=== PATIENT | male | born 1990 | race Caucasian/White ===

== ENCOUNTER 2023-12-23 10:52 | Emergency (ER) | payer SELFPAY ==
[2023-12-23 11:02] VITALS: BP 140/78
[2023-12-23 11:30] VITALS: BMI 22.7
--- NOTE | 2023-12-23 11:49 | ED.GENMED ---
History of Present Illness
General
Chief Complaint: Abdominal Pain
Source: patient
Exam Limitations: none
Time Seen by Provider: 12/23/23 11:27
Nursing documentation reviewed up to this point in time: agreed with
Travel History
Have you had any contact with someone who has COVID-19?: No
Do you have any symptoms of coronavirus? Fever > 100 degrees, chills, cough, shortness of breath, sore throat, loss of taste or smell, muscle aches, or headache?: No
History of Present Illness
History of Present Illness:
Patient is a 33-year-old male presenting to the emergency department for evaluation of severe upper abdominal pain with associated nausea and vomiting. Symptoms have been ongoing since Wednesday night around 9 PM. Patient reports initial symptom
onset after spending the day celebrating [place] [employer], eating tacos and pizza, and drinking 4-5 margaritas. Patient states his ate the same food and has been feeling well. patient reports persistent nausea and vomiting for the past 4 days
with worsening upper abdominal pain. Pain is mostly located in upper abdomen and left upper abdomen. Patient reports chills and subjective fever. Patient denies any chest pain, shortness of breath, diarrhea. Patient states bowel moods been
normal without any hematochezia or melena. Patient denies any urinary symptoms. Patient denies any hemoptysis.
Patient does have a history of bacterial colitis a few years ago for which she was treated with antibiotics and states that this does feel similar.
Phy Exam
Physical Exam
Physical Exam:
Vitals: Mildly hypertensive, otherwise patient's vital signs are stable, afebrile
General: Patient is writhing in pain, clearly uncomfortable
Skin: Warm and dry, no rashes or lesions
Head: Normocephalic, atraumatic
Eyes: Sclera nonicteric. EOMs intact. No nystagmus.
Throat: Dry mucous membranes protecting airway
Neck: Normal ROM, no cervical spine tenderness, no meningismus
Cardiac: Regular rate and rhythm, no murmurs.
Pulm: Normal respiratory effort, no wheezes, rales, rhonchi heard on exam.
Abdomen: Significant epigastric abdominal tenderness, mild tenderness left upper quadrant without any rebound tenderness or guarding; negative Grewal sign
Extremities: No evidence of cyanosis or edema; DP pulses palpable and equal bilaterally
Neuro: AAOx3. CN II-XII intact. No focal neurologic deficits.
Psychiatric: Normal affect.
Course
Orders/Labs/Results
Orders:
Orders
12/23/23 11:37
Complete Blood Count/With Diff Urgent
Comprehensive Metabolic Panel Urgent
Lipase Urgent
12/23/23 11:48
0.9% Sodium Chloride 1000 ml [Nss] 1,000 ml IV BOLUS
HYDROmorphone [Dilaudid] 1 mg IV NOW STA
Ondansetron Injectable [Zofran] 4 mg IV NOW STA
12/23/23 11:52
CT Abd/Pel (IV only)-DH only Urgent
Comment: hx colitis
Reason For Exam: Epigastric/LUQ pain; N/V
12/23/23 12:00
Electrocardiogram (*1) Urgent
Reason for Study: Abdominal Pain
EKG- Treatment ONCE
12/23/23 12:05
Famotidine [Pepcid] 20 mg IV NOW STA
12/23/23 15:06
Potassium Chloride [KCl] 40 meq PO NOW STA
Abnormal Lab Results
12/23/23
11:37
WBC 14.0 H 10^3/uL
(4.8-10.8)
MCH 31.3 H pg
(27.0-31.0)
MPV 11.5 H fL
(7.4-10.4)
Absolute Neuts (auto) 11.1 H 10^3/uL
(1.4-6.5)
Absolute Monos (auto) 1.4 H 10^3/uL
(0.1-0.6)
Neutrophils % 79.5 H %
(42.2-75.2)
Lymphocytes % 9.8 L %
(20.5-51.1)
Monocytes % 10.0 H %
(1.7-9.3)
Sodium 134 L mmol/L
(135-145)
Potassium 3.1 L mmol/L
(3.5-5.1)
Chloride 94 L mmol/L
(98-107)
BUN 22 H mg/dl
(9-20)
Glucose 118 H mg/dl
(70-99)
Total Bilirubin 2.3 H mg/dl
(0.2-1.3)
Albumin 5.4 H g/dl
(3.5-5.0)
12/23/23 11:37
12/23/23 11:37
Vital Signs
Initial and Last Documented VS:
Initial Vital Signs
Temp Pulse Resp BP Pulse Ox
98.0 F 62 18 140/78 100
12/23/23 11:02 12/23/23 11:02 12/23/23 11:02 12/23/23 11:02 12/23/23 11:02
Last Documented Vital Signs
Temp Pulse Resp BP Pulse Ox
98.0 F 54 18 119/78 98
12/23/23 11:02 12/23/23 15:25 12/23/23 15:25 12/23/23 15:25 12/23/23 15:15
MDM/Problems Addressed
Differential Diagnosis Includes:
Not limited to: Gastritis, pancreatitis, cholecystitis, choledocholithiasis, colitis
MDM/Problems Addressed:
33-year-old male presenting for evaluation of severe left upper quadrant pain with associated nausea/vomiting for the past 4 days. Patient does state feels similar to episode of colitis a few years ago. No fever. Patient social alcohol drinker.
Vital signs are stable. He is afebrile. Exam as above. Patient is in significant distress due to pain, abdomen soft with significant tenderness in epigastric and left upper quadrant. Will check basic labs, lipase. Will get CT scan of abdomen
pelvis. Given epigastric discomfort�will check EKG, although seriously doubt cardiac etiology or ACS. Dilaudid, Zofran, fluids, famotidine. Will closely monitor and reassess
Labs noted. He does have leukocytosis of 14. This may be reactive due to vomiting for the past 4 days. Lipase is normal. He does appear dehydrated on lab work. Sodium 134. Potassium 3.1. Will give 40 p.o. potassium. Patient states nausea has
improved following Zofran and has had no episodes of vomiting since arrival to ED. Bilirubin is elevated 2.[address] pending.
Into reassess patient at bedside. He was seen to have a few intermittent PVCs on the surveillance monitor. He denies any chest pain, shortness of breath. I do not believe symptoms to be at all cardiac in nature. He appears much more comfortable than
earlier. Pain much improved. CT scan shows no acute abnormalities. Did speak with radiologist regarding contrast appearing substance seen in cecum�which is likely attributable to Pepto-Bismol the patient ingested earlier today.
Patient is stable. Workup here has been grossly negative. No evidence for pancreatitis, he is tolerating p.o. food/water without any repetitive episodes of vomiting. Symptoms might be related to gastritis. Given elevation white blood cell
count�will send prescription for antibiotics. Will discharge with Zofran and PPI for the next 2 weeks. He will follow-up with primary care next week. Return precautions discussed at length. Patient comfortable with this plan. All questions
answered
Chronic conditions affecting care:
N/A
Acute Exacerbation and/or Progression of Chronic Illness:
N/A
*Radiology
Radiology exam reviewed: preliminary read by ED provider and radiology read reviewed
*Pulse Oximetry
Patient hypoxic: no
*EKG
Interpreted by ED Provider?: Yes
EKG Intrepretation Date: 12/23/23
Interpretation: normal
Comparison EKG: no comparison EKG present
Heart Rate: 73
Rate: normal
Rhythm: sinus
Ischemia: no ischemia
*M[employer] Specialist Interpretation
Rate: normal
Interpretation: normal
Heart Rate: 54
Rhythm: sinus
*Critical Care Note
Total Time (30-74mins, 75-104mins- exclusive of procedures): Not Applicable
ED Attending Note
-
Portions of this chart may have been created with voice recognition software.� Occasional wrong word or��sound alike� substitutions may have occurred due to the inherent limitations of voice recognition software.
Discharge Plan
Departure
Patient Disposition: Home (Routine Discharge)
Date of Disposition: 12/23/23
Time of Disposition: 15:17
Patient with high blood pressure during this ER visit?: Yes
Condition: Good
Covid-19: Not Applicable
Discharge Problem:
Abdominal pain, Nausea and vomiting
Instructions: Nausea and Vomiting, Adult (DC), Gastritis (DC), Abdominal Pain
Prescriptions:
New
amoxicillin-pot clavulanate 500-125 mg tablet
1 tab PO BID 5 Days Qty: 10 0RF
ondansetron 4 mg tablet,disintegrating
4 mg PO Q8H PRN (Reason: nausea and vomiting) Qty: 10 0RF
omeprazole 20 mg capsule,delayed release(DR/EC)
20 mg PO DAILY 14 Days Qty: 14 0RF
Referrals:
Marbin Baxter DO [Family Provider] - Follow up in 5-7 days
Stand Alone Forms: Return to Work
Activity Restrictions/Additional Instructions:
-Return to the emergency department with any high fevers, severe abdominal pain, persistent nausea/vomiting, vomiting blood, signs of severe dehydration, worsening in current symptoms, or any other concerns
-Your prescriptions have been sent to the pharmacy
-It is important to stay well hydrated
-As discussed - you should follow-up with your primary care provider within the week to ensure that symptoms are improving.
Interventions
Interventions:
*Risk Screen - Suicide Last Done: 12/23/23 11:02
*General Assessment Last Done: 12/23/23 11:02
*Neglect/Abuse Screening Last Done: 12/23/23 11:02
*ED COVID-19 Vaccine History Last Done: 12/23/23 11:02
*Nursing Disposition Last Done: 12/23/23 15:59
[facility] Assessment Last Done: 12/23/23 11:31
Discharge Date and Time
Discharge Date/Time: 12/23/23 15:59
Print Language: [place]ET[place]ESE
[2023-12-23] MEDS: ZOFRAN 4 MG IV (11:53)
[2023-12-23] MEDS: NSS 1000 IV (11:53)
[2023-12-23] MEDS: DILAUDID 1 MG IV (11:53)
[2023-12-23 11:57] LABS: % Basophils 0.3 % (0-2); % Eosinophils 0.1 % (0-6); % Immature Granulocytes 0.3 % (0-0.5); % Lymphocytes 9.8 % (20.5-51.1); % Neutrophils 79.5 % (42.2-75.2); Absolute Lymphocytes 1.4 10^3/uL (1.2-3.4); Absolute Monocytes 1.4 10^3/uL (0.1-0.6); Absolute Neutrophils 11.1 10^3/uL (1.4-6.5); Hematocrit 44.6 % (39.0-52.0); Hemoglobin 16.3 g/dL (13.0-18.0); Mean Corp Hgb Conc. 36.5 g/dL (33.0-37.0); Mean Corpuscular Hgb 31.3 pg (27.0-31.0); Mean Corpuscular Volume 85.6 fL (80.0-94.0); Mean Platelet Volume 11.5 fL (7.4-10.4); Nucleated Red Blood Cells % 0 % (-); Platelet Count 262 10^3/uL (130-400); Red Blood Cell Count 5.21 10^6/uL (4.70-6.10); Red Cell Dist. Width 11.9 % (11.5-14.5)
[2023-12-23 12:16] LABS: ALT (SGPT) 38 U/L (0-50); AST (SGOT) 28 U/L (17-59); Albumin 5.4 g/dl (3.5-5.0); Alkaline Phosphatase 67 U/L (38-126); Blood Urea Nitrogen 22 mg/dl (9-20); Calcium 10.1 mg/dl (8.4-10.2); Carbon Dioxide 30 mmol/L (22-30); Chloride 94 mmol/L (98-107); Estimated Creatinine Clearance 123 ml/min; Glucose 118 mg/dl (70-99); Lipase 57 U/L (23-300); Potassium 3.1 mmol/L (3.5-5.1); Sodium 134 mmol/L (135-145); Total Bilirubin 2.3 mg/dl (0.2-1.3); Total Protein 7.6 g/dl (6.3-8.2); eGFR > 60.00
[2023-12-23] MEDS: PEPCID 20 MG IV (12:42)
[2023-12-23] MEDS: KCL 40 MEQ PO (15:19)
[2023-12-23 15:25] VITALS: BP 119/78
== END 2023-12-23 15:59 | disposition home or self-care (01) ==
LOC: EMR 10:52
PROVIDERS: Physician Assistant; EMERGENCY PHYSICIAN Emergency Medicine; FAMILY PHYSICIAN Family Medicine
DX: R10.10 Upper abdominal pain, unspecified (principal); R11.2 Nausea with vomiting, unspecified; I49.3 Ventricular premature depolarization
CPT/HCPCS: 99284; 74177; 80053; 83690; 85025; 93005; Q9967